=== PATIENT | male | born 1975 ===

== ENCOUNTER 2023-06-08 08:45 | Emergency (ER) | payer BC ==
[2023-06-08] MEDS ORDERED: Lidocaine 1% with EPINEPHrine 1:100,000 20 ML MDV INJECT ONE (09:06)
[2023-06-08] MEDS ORDERED: Diphtheria,Pertussis(Acell),Tetanus Vaccine 0.5 ML Syringe IM ONE (09:08)
== END 2023-06-08 11:30 | disposition home or self-care (01) ==
LOC: MW.ED 08:45
DX: S61.451A Open bite of right hand, initial encounter (principal); Z23 Encounter for immunization; W54.0XXA Bitten by dog, initial encounter
CPT/HCPCS: 12001; 73130-26-RT; 73130-RT; 90471; 90715; 99283; 99283-25; J3490